=== PATIENT | male | born 1965 | race Caucasian/White ===

== ENCOUNTER → 2017-03-11 | Outpatient (CLI) | payer BC ==
--- NOTE | 2017-03-12 07:44 | US ---
EXAMINATION TYPE: US thyroid st tissue head/neck DATE OF EXAM: 03/11/2017 3:57 PM COMPARISON: Previous study dated 07/10/2016. CLINICAL HISTORY: E04.1 THYROID NODULE. GLAND SIZE: Right Lobe: 5.5 x 2.4 x 2.9 cm Overall Parenchyma: heterogenous Left Lobe: 4.7 x 1.7 x 2.0 cm Overall Parenchyma: heterogeneous Isthmus Thickness: 0.5 cm NODULES RIGHT: # of nodules measured on right: 3 largest of multiple 1. 1.7 X 1.1 x 1.0 cm hypoechoic cystic nodule at the upper pole with well-defined margins. This n odule is wider than tall and shows no intranodular vascularity. Prior size: 1.6 x 1.1 x 1.0 cm 2. 0.9 X 1.1 x 1.1 cm hypoechoic solid nodule at the upper pole with margins. This nodule is wide a s is tall and shows no intranodular vascularity. Prior size: 1.2 x 1.1 x 1.1 cm 3. 0.4 x 0.4 x 0.4cm hypoechoic mixed nodule at the lower pole with well-defined margins. This nodul e is wide as is tall and shows no intranodular vascularity. Prior size: not previously seen 4. Multiple smaller mid pole nodules are again seen, but not measured in 2 views as are < 0.4cm. LEFT: # of nodules measured on left: 2 1. 0.7 X 0.5 x 0.3 cm hypoechoic mixed nodule at the mid pole with well-defined margins. This nodu le is wider than tall and shows no intranodular vascularity. Prior size: 0.9 x 0.6 x 0.4 cm 2. 0.3 X 0.3 x 0.2 cm hypoechoic solid nodule at the upper pole with well-defined margins. This nod ule is wider than tall and shows no intranodular vascularity. Prior size: not previously seen 3. 0.4 X 0.4 x 0.3 cm hypoechoic solid nodule at the lower pole with well-defined margins. This nod ule is wider than tall and shows no intranodular vascularity. Prior size: x x cm 4. Very small cyst noted last US is still present mid lower pole ~ 0.2cm. ISTHMUS: # of nodules measured in the isthmus: 0 Bilateral neck scanned, no evidence of lymphadenopathy. IMPRESSION: MULTINODULAR GOITER. SOME OF THESE LESIONS ARE SLOWLY ENLARGING.
== END | disposition home or self-care (01) ==
LOC: RADUSWWP 15:27
PROVIDERS: ATTEND Otolaryngology
DX: E04.2 Nontoxic multinodular goiter (principal)
CPT/HCPCS: 76536

== ENCOUNTER → 2017-04-10 | Outpatient (CLI) | payer BC ==
[2017-04-10 08:23] LABS: Aty Lym Flag Slight; CH 27.6; CHCM 32.5; HCT 45.6 % (39.0-53.0); HDW 2.56; HGB 14.8 gm/dL (13.0-17.5); MCH 27.7 pg (25.0-35.0); MCHC 32.5 g/dL (31.0-37.0); MCV 85.2 fL (80.0-100.0); Mean Platelet Volume 7.2; RBC 5.35 m/uL (4.30-5.90); RDW 13.7 % (11.5-15.5); WBC 7.8 k/uL (3.8-10.6); WBC (Perox) 7.96
[2017-04-10 08:31] LABS: ALT 50 U/L (21-72); AST 25 U/L (17-59); Alkaline Phosphatase 53 U/L (38-126); Anion Gap 7 mmol/L; Blood Urea Nitrogen 13 mg/dL (9-20); Calcium 9.9 mg/dL (8.4-10.2); Carbon Dioxide 31 mmol/L (22-30); Chloride 105 mmol/L (98-107); Cholesterol 161 mg/dL (<200); Glucose 93 mg/dL (74-99); HDL Cholesterol 45 mg/dL (40-60); Non-African American GFR(MDRD) >60 (>60 ml/min/1.73 sqM); Potassium 4.9 mmol/L (3.5-5.1); Sodium 143 mmol/L (137-145); Total Bilirubin 0.9 mg/dL (0.2-1.3); Total Protein 6.7 g/dL (6.3-8.2); Triglycerides 132 mg/dL (<150)
[2017-04-10 09:00] LABS: Prostate Specific Antigen 0.42 ng/mL (0.00-4.00)
[2017-04-10 11:09] LABS: Add Differential Manual Differential
[2017-04-10 11:11] LABS: Nucleated Red Blood Cells 0 /100 WBC (0-0); RBC Morphology Normal; Total Cells Counted 100
== END | disposition home or self-care (01) ==
LOC: LABWHC1 07:35
PROVIDERS: ATTEND Family Medicine
DX: Z00.01 Encounter for general adult medical examination with abnormal findings (principal); Z12.5 Encounter for screening for malignant neoplasm of prostate
CPT/HCPCS: 36415; 80053; 80061; 84153; 84443; 85025

== ENCOUNTER → 2017-12-02 | Outpatient (CLI) | payer BC ==
--- NOTE | 2017-12-03 08:04 | US ---
EXAMINATION TYPE: US thyroid st tissue head/neck DATE OF EXAM: 12/02/2017 COMPARISON: Prior thyroid ultrasound March 11, 2017 CLINICAL HISTORY: E04.1 Thyroid Nodule. GLAND SIZE: Right Lobe: 5.0 x 2.4 x 2.5 cm Overall Parenchyma: homogenous Left Lobe: 4.6 x 2.2 x 2.1 cm Overall Parenchyma: homogeneous Isthmus Thickness: 0.5 cm NODULES RIGHT: # of nodules measured on right: 4 largest of multiple 1. 1.9 X 1.3 x 1.3 cm hypoechoic cystic nodule at the upper pole with well-defined margins. This n odule is wider as tall and shows no intranodular vascularity. Prior size: 1.7 x 1.1 x 1.0 cm 2. 1.1 X 0.9 x 1.1 cm hypoechoic solid nodule at the mid pole with well-defined margins. This nodul e is taller than wide and shows intranodular vascularity. Prior size: 0.9 x 1.1 x 1.1 cm 3. 0.5 X 0.4 x 0.3 cm hypoechoic mixed nodule at the lower pole with well-defined margins. This nod ule is wider than tall and shows no intranodular vascularity. Prior size: 0.4 x 0.4 x 0.4 cm 4. 0.4 X 0.4 x 0.3 cm hypoechoic mixed nodule at the lower medial pole with well-defined margins. T his nodule is wider than tall and shows no intranodular vascularity. Prior size: no prior LEFT: # of nodules measured on left: 3 largest of multiple 1. 1.0 X 0.7 x 0.4 cm hypoechoic mixed nodule at the mid pole with well-defined margins. This nodu le is wider than tall and shows no intranodular vascularity. Prior size: 0.7 x 0.5 x 0.3 cm 2. 0.4 X 0.5 x 0.3 cm hypoechoic mixed nodule at the upper pole with well-defined margins. This nod ule is wider than tall and shows no intranodular vascularity. Prior size: 0.3 x 0.3 x 0.2 cm 3. 0.3 X 0.3 x 0.2 cm hypoechoic mixed nodule at the lower pole with well-defined margins. This nodu le is wider than tall and shows no intranodular vascularity. Prior size: 0.4 x 0.4 x 0.3 cm ISTHMUS: # of nodules measured in the isthmus: 0 Bilateral neck scanned, no evidence of lymphadenopathy. IMPRESSION: Findings consistent with multinodular goiter redemonstrated as there are several small nodules seen i n normal size thyroid. No significant change from most recent prior.
== END | disposition home or self-care (01) ==
LOC: RADUSWWP 16:19
PROVIDERS: ATTEND Otolaryngology
DX: E04.2 Nontoxic multinodular goiter (principal)
CPT/HCPCS: 76536

== ENCOUNTER → 2018-03-12 | Outpatient (CLI) | payer BC ==
[2018-03-12 09:33] LABS: Basophils # (A) 0.1 k/uL (0-0.2); Basophils % (A) 1 %; Eosinophils # (A) 0.3 k/uL (0-0.7); Eosinophils % (A) 4 %; HCT 46.9 % (39.0-53.0); HGB 15.2 gm/dL (13.0-17.5); Lymphocytes # (A) 2.4 k/uL (1.0-4.8); Lymphocytes % (A) 32 %; MCH 26.4 pg (25.0-35.0); MCHC 32.5 g/dL (31.0-37.0); MCV 81.3 fL (80.0-100.0); Mean Platelet Volume 7.3; Monocytes # (A) 0.5 k/uL (0-1.0); Monocytes % (A) 7 %; Neutrophils # (A) 3.9 k/uL (1.3-7.7); Neutrophils % (A) 52 %; Platelet Count 323 k/uL (150-450); RBC 5.76 m/uL (4.30-5.90); RDW 13.7 % (11.5-15.5); WBC 7.5 k/uL (3.8-10.6)
[2018-03-12 10:36] LABS: ALT 39 U/L (21-72); AST 23 U/L (17-59); Albumin 4.2 g/dL (3.5-5.0); Alkaline Phosphatase 56 U/L (38-126); Anion Gap 12 mmol/L; Blood Urea Nitrogen 18 mg/dL (9-20); Carbon Dioxide 28 mmol/L (22-30); Chloride 106 mmol/L (98-107); Cholesterol 167 mg/dL (<200); Glucose 93 mg/dL (74-99); HDL Cholesterol 41 mg/dL (40-60); LDL Cholesterol,Calculated 102 mg/dL (0-99); Potassium 4.8 mmol/L (3.5-5.1); Sodium 146 mmol/L (137-145); Total Bilirubin 0.5 mg/dL (0.2-1.3); Total Protein 6.7 g/dL (6.3-8.2); Triglycerides 121 mg/dL (<150)
[2018-03-12 10:49] LABS: T4, Free (Free Thyroxine) 0.96 ng/dL (0.78-2.19)
[2018-03-12 17:24] LABS: Thyroid Peroxidase Antibodies 35.3 U/mL (0.0-60.0)
[2018-03-12 18:56] LABS: Thyroglobulin 16.7 ng/mL (1.60-59.90)
== END | disposition home or self-care (01) ==
LOC: LABWHC1 08:36
PROVIDERS: ATTEND Nurse Practitioner Family
DX: Z00.00 Encounter for general adult medical examination without abnormal findings (principal); I10 Essential (primary) hypertension; E04.1 Nontoxic single thyroid nodule; R53.83 Other fatigue; Z12.5 Encounter for screening for malignant neoplasm of prostate
CPT/HCPCS: 36415; 80053; 80061; 84153; 84432; 84439; 84443; 85025; 86376

== ENCOUNTER → 2018-03-22 | Outpatient (CLI) | payer BC ==
--- NOTE | 2018-03-22 20:22 | US ---
EXAMINATION TYPE: US thyroid st tissue head/neck DATE OF EXAM: 03/22/2018 COMPARISON: 12/02/2012 CLINICAL HISTORY: 52-year-old male E04.1 THYROID NODULE. GLAND SIZE: Right Lobe: 6.3 x 2.3 x 2.0 cm Overall Parenchyma: heterogenous Left Lobe: 5.4 x 2.2 x 2.1 cm Overall Parenchyma: heterogeneous Isthmus Thickness: 0.4 cm NODULES RIGHT: # of nodules measured on right: 4 1. 1.7 X 1.1 x 1.2 cm mildly complex cystic nodule at the upper pole with well-defined margins; . This nodule is wider than tall and shows no intranodular vascularity. Prior size: 1.9 x 1.3 x 1.3 cm 2. 1.1 X 1.1 x 1.2 cm hypoechoic solid nodule at the upper pole with well-defined margins; there are microcalcifications. This nodule is wider than tall and shows intranodular vascularity. Prior size: 1.1 x 0.9 x 1.1 cm 3. 0.5 X 0.5 x 0.4 cm hypoechoic solid nodule at the lower pole with well-defined margins; . This n odule is wider than tall and shows no intranodular vascularity. Prior size: 0.5 x 0.4 x 0.3 cm 4. 0.5 X 0.4 x 0.5 cm hypoechoic solid nodule at the lower pole with well-defined margins; . This n odule is wider than tall and shows no intranodular vascularity. Prior size: 0.4 x 0.4 x 0.3 cm LEFT: # of nodules measured on left: 2 1. 0.9 X 0.4 x 0.7 cm hypoechoic mixed nodule at the lower pole with well-defined margins; . This nodule is wider than tall and shows no intranodular vascularity. Prior size: 1.0 x 0.7 x 0.4 cm 2. 0.4 X 0.3 x 0.4 cm hypoechoic solid nodule at the upper pole with margins; . This nodule is wide r than tall and shows no intranodular vascularity. Prior size: 0.4 x 0.5 x 0.3 cm ISTHMUS: # of nodules measured in the isthmus: 0 Bilateral neck scanned, no evidence of lymphadenopathy. 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 Only two nodules doc umented on left as compared to 3 on prior exam. IMPRESSION: 1. Findings likely represent multinodular goiter. 2. Numerous bilateral nodules are present. The largest on the right measures 1.7 cm versus 1.9 cm, pr eviously and is a mildly complex cystic nodule. The second largest nodule on the right is solid at 1. 2 cm and is relatively unchanged. 3. Largest nodule on the left measures 9 mm and is relatively unchanged.
== END | disposition home or self-care (01) ==
LOC: RADUSWWP 16:51
PROVIDERS: ATTEND Otolaryngology
DX: E04.2 Nontoxic multinodular goiter (principal)
CPT/HCPCS: 76536

== ENCOUNTER → 2018-10-15 | Outpatient (CLI) | payer BC ==
[2018-10-15 17:35] LABS: T4, Free (Free Thyroxine) 1.3 ng/dL (0.80-1.80)
== END | disposition home or self-care (01) ==
LOC: LABWHC1 08:01
PROVIDERS: ATTEND Nurse Practitioner Family
DX: E04.9 Nontoxic goiter, unspecified (principal)
CPT/HCPCS: 36415; 84439; 84443

== ENCOUNTER → 2019-05-23 | Outpatient (CLI) | payer BC ==
--- NOTE | 2019-05-23 13:44 | US ---
EXAMINATION TYPE: US thyroid st tissue head/neck DATE OF EXAM: 05/23/2019 COMPARISON: US 03/22/2018 CLINICAL HISTORY: E04.1 SINGLE THYROID NODULE. GLAND SIZE: Right Lobe: 5.7 x 2.1 x 2.1 cm Overall Parenchyma: heterogenous Left Lobe: 4.9 x 1.9 x 1.8 cm Overall Parenchyma: heterogeneous Isthmus Thickness: 0.6 cm NODULES RIGHT: # of nodules measured on right: 2- Multiple subcentimeter nodules visualized 1. 1.2 X 0.9 x 1.1 cm isoechoic solid nodule at the mid pole with well-defined margins; . This nod ule is wider than tall and shows intranodular vascularity. Prior size: 1.1 x 1.1 x 1.2 cm 2. 1.5 X 0.9 x 1.1 cm hypoechoic mixed nodule at the mid pole with well-defined margins; . This nod ule is wider than tall and shows intranodular vascularity. Prior size: 1.7 x 1.1 x 1.2 cm LEFT: # of nodules measured on left: 1 1. 1.3 X 0.5 x 0.7 cm hypoechoic solid nodule at the upper pole with well-defined margins; . This nodule is wider than tall and shows intranodular vascularity. Prior size: 0.9 x 0.4 x 0.7 cm ISTHMUS: # of nodules measured in the isthmus: 0 Bilateral neck scanned, no evidence of lymphadenopathy. IMPRESSION: Exam is essentially stable, slight interval growth in left tyroid nodule is likely at least in part d ue to differences in measurement technique.
== END | disposition home or self-care (01) ==
LOC: RADUSWWP 08:56
PROVIDERS: ATTEND Family Medicine
DX: E04.1 Nontoxic single thyroid nodule (principal)
CPT/HCPCS: 76536

== ENCOUNTER → 2019-12-19 | Outpatient (CLI) | payer BC ==
[2019-12-19 08:33] LABS: HCT 46.4 % (39.0-53.0); HGB 14.7 gm/dL (13.0-17.5); MCHC 31.8 g/dL (31.0-37.0); MCV 85.1 fL (80.0-100.0); Mean Platelet Volume 7.7; Platelet Count 410 k/uL (150-450); RBC 5.45 m/uL (4.30-5.90); RDW 13.4 % (11.5-15.5); WBC 9.1 k/uL (3.8-10.6)
[2019-12-19 09:40] LABS: Eosinophils # (M) 0.64 k/uL (0-0.7); Lymphocytes # (M) 2.64 k/uL (1.0-4.8); Monocytes # (M) 0.73 k/uL (0-1.0); Neutrophils % (M) 56 %; Nucleated Red Blood Cells 0 /100 WBC (0-0); Total Cells Counted 100
[2019-12-19 11:34] LABS: African American GFR (CKD) 112.6 (60.0-200.0); Albumin 4.6 g/dL (3.80-4.90); Albumin/Globulin Ratio 2.3 (1.60-3.17); Anion Gap 8.4 mmol/L (4.00-12.00); BUN/Creat Ratio 17.78 Ratio (12.00-20.00); Calcium 9.8 mg/dL (8.7-10.3); Carbon Dioxide 28.6 mmol/L (21.6-31.8); Non-African American GFR(CKD) 97.2 (60.0-200.0); Potassium 5.2 mmol/L (3.5-5.5); Total Bilirubin 0.6 mg/dL (0.3-1.2); Total Protein 6.6 g/dL (6.2-8.2)
== END | disposition home or self-care (01) ==
LOC: LABWHC1 07:14
PROVIDERS: ATTEND Family Medicine
DX: K80.20 Calculus of gallbladder without cholecystitis without obstruction (principal)
CPT/HCPCS: 36415; 80053; 85025

== ENCOUNTER → 2020-05-24 | Outpatient (CLI) | payer BC ==
[2020-05-24 08:11] LABS: Basophils # (A) 0.1 k/uL (0-0.2); Basophils % (A) 1 %; Eosinophils # (A) 0.4 k/uL (0-0.7); Eosinophils % (A) 5 %; HCT 48.4 % (39.0-53.0); HGB 15.7 gm/dL (13.0-17.5); Lymphocytes # (A) 2.2 k/uL (1.0-4.8); Lymphocytes % (A) 27 %; MCH 27.6 pg (25.0-35.0); MCHC 32.5 g/dL (31.0-37.0); Mean Platelet Volume 7.3; Monocytes # (A) 0.6 k/uL (0-1.0); Monocytes % (A) 7 %; Neutrophils # (A) 4.4 k/uL (1.3-7.7); Neutrophils % (A) 55 %; Platelet Count 345 k/uL (150-450); RBC 5.69 m/uL (4.30-5.90); RDW 13.3 % (11.5-15.5)
[2020-05-24 11:10] LABS: African American GFR (CKD) 118.2 (60.0-200.0); Albumin 4.3 g/dL (3.80-4.90); Albumin/Globulin Ratio 2.15 (1.60-3.17); Anion Gap 4.6 mmol/L (4.00-12.00); BUN/Creat Ratio 16.25 Ratio (12.00-20.00); Calcium 9.7 mg/dL (8.7-10.3); Carbon Dioxide 28.4 mmol/L (21.6-31.8); Chol/HDL Ratio 3.81; Potassium 4.5 mmol/L (3.5-5.5); Total Bilirubin 0.8 mg/dL (0.3-1.2); Total Protein 6.3 g/dL (6.2-8.2)
[2020-05-24 11:17] LABS: T4, Free (Free Thyroxine) 1.3 ng/dL (0.80-1.80)
[2020-05-24 16:15] LABS: Hemoglobin A1C 5.4 % (4.0-6.0)
== END | disposition home or self-care (01) ==
LOC: LABWHC1 07:08
PROVIDERS: ATTEND Nurse Practitioner Adult Health
DX: Z00.00 Encounter for general adult medical examination without abnormal findings (principal); Z11.59 Encounter for screening for other viral diseases
CPT/HCPCS: 36415; 80053; 80061; 83036; 84439; 84443; 85025; 86803

== ENCOUNTER 2023-05-14 09:34 | Day surgery (SDC) | payer BC ==
[2023-05-14] MEDS ORDERED: LACTATED RINGERS 1,000 ML IV ONE ×2 (10:04)
[2023-05-14] MEDS ORDERED: LACTATED RINGERS 1,000 ML IV SCH (10:04)
[2023-05-14 10:08] VITALS: RESP 16; TEMP 97.9
[2023-05-14] MEDS ORDERED: PROPOFOL 10 MG/ML 20 ML VIAL IV ONE (10:25)
--- NOTE | 2023-05-14 10:54 | P.PCN ---
Date of Procedure: 05/14/23 Procedure(s) Performed: BRIEF HISTORY: Patient is a 57-year-old pleasant white male male scheduled for an elective colonoscopy as a part of evaluation of intermittent rectal bleeding. PROCEDURE PERFORMED: Colonoscopy. PREOPERATIVE DIAGNOSIS: Intermittent rectal bleeding. IV sedation per Anesthesia. PROCEDURE: After informed consent was obtained, the patient, was brought into the endoscopy unit. IV sedation was administered by Anesthesia under continuous monitoring. Digital rectal examination was normal. Initially the Olympus CF-160 flexible video colonoscope was then inserted in the rectum, gradually advanced into the cecum without any difficulty. Careful examination was performed as the scope was gradually being withdrawn. Ileocecal valve and the appendiceal orifice were visualized and appeared normal. Prep was fair. Mucosa of the cecum, ascending colon, transverse colon, descending colon, sigmoid colon, and rectum appeared normal. Retroflexion was performed in the rectum and small internal hemorrhoids were seen. The patient tolerated the procedure well. IMPRESSION: Normal-appearing colon from rectum to cecum with no evidence of colorectal neoplasia . Small internal hemorrhoids RECOMMENDATIONS: Findings of this examination were discussed with the patient as well as his family. He was advised to be a high-fiber diet and was noted. Recommend repeat screening colonoscopy in 10 years.
[2023-05-14 11:17] VITALS: BP 138/88; PULSE 57
== END 2023-05-14 11:52 | disposition home or self-care (01) ==
LOC: ORWHC2ENDO 09:34
PROVIDERS: ATTEND Internal Medicine Gastroenterology
DX: K64.8 Other hemorrhoids (principal); I10 Essential (primary) hypertension; F17.200 Nicotine dependence, unspecified, uncomplicated; E04.1 Nontoxic single thyroid nodule; Z79.899 Other long term (current) drug therapy
CPT/HCPCS: 45378; J2704

== ENCOUNTER → 2024-02-29 | Outpatient (CLI) | payer BC ==
--- NOTE | 2024-03-02 09:34 | US ---
EXAMINATION TYPE: US thyroid st tissue head/neck DATE OF EXAM: 02/29/2024 COMPARISON: 05/23/2019 CLINICAL INDICATION: Male, 58 years old with history of E04.1 NONTOXIC SINGLE THYROID NODULE; Nodule GLAND SIZE: Right Lobe: 6.1 x 2.1 x 2.5 cm Overall Parenchyma: heterogeneous Left Lobe: 5.2 x 2.2 x 2.1 cm Overall Parenchyma: heterogeneous Isthmus Thickness: 0.49 cm NODULES RIGHT: # of nodules measured on right: 2 1. 1.4 X 1.3 x 1.2 cm, mid mid, solid or almost completely solid, hypoechoic nodule, which is as wi de as it is tall, with smooth margins, with echogenic foci. Prior size: 1.2 x 0.9 x 1.1 cm 2. 0.6 X 0.6 x 0.4 cm, mid mid, solid or almost completely solid, hypoechoic nodule, which is wider than tall, with smooth margins, without echogenic foci. Prior size: Does not correlate with certainty LEFT: # of nodules measured on left: 2 1. 0.7 X 0.5 x 0.5 cm, upper mid, mixed cystic and solid, hypoechoic nodule, which is as wide as it is tall, with smooth margins, without echogenic foci. Prior size: Does not correlate 2. 1.1 X 0.8 x 0.5 cm, mid medial, solid or almost completely solid, hypoechoic nodule, which is w ider than tall, with smooth margins, with echogenic foci. Prior size: 1.3 x 0.5 x 0.7 cm ISTHMUS: # of nodules measured in the isthmus: 0 Bilateral neck scanned, prominent lymph node seen right neck, cortex measures 3.0 mm. The short axis of the lymph node is 5 mm and has a benign appearance. IMPRESSION: Mildly increasing multinodular goiter. The largest nodule is in the right mid gland and has increased slightly in size from 1.2 x 0.9 x 1.1 cm to 1.4 x 1.3 x 1.2 cm. Yearly follow-up is recommended. 2017 ACR TI-RADS LEVEL: 4 *Highest TI-RADS level nodule reported
== END | disposition home or self-care (01) ==
LOC: RADUSWWP 14:44
PROVIDERS: ATTEND Family Medicine
DX: E04.2 Nontoxic multinodular goiter (principal)
CPT/HCPCS: 76536

== ENCOUNTER → 2024-03-29 | Outpatient (CLI) | payer BC ==
[2024-03-29 10:35] LABS: Basophils # (A) 0.11 X 10*3/uL (0.00-0.10); Basophils % (A) 1.5 %; Eosinophils # (A) 0.52 X 10*3/uL (0.04-0.35); Eosinophils % (A) 7.1 %; HGB 14.8 g/dL (13.0-17.0); Lymphocytes # (A) 2.26 X 10*3/uL (0.90-5.00); Lymphocytes % (A) 30.7 %; MCHC 31.5 g/dL (32.0-37.0); MCV 85.8 FL (80.0-97.0); Mean Platelet Volume 9.9 FL (9.5-12.2); Monocytes # (A) 0.87 X 10*3/uL (0.20-1.00); Monocytes % (A) 11.8 %; NRBC Per 100 WBC 0 X 10*3/uL (0.00-0.01); Neutrophils % (A) 48.8 %; Platelet Count 329 X 10*3/uL (140-440); RBC 5.48 X 10*6/uL (4.40-5.60); RDW 13.6 % (11.5-14.5); WBC 7.37 X 10*3/uL (4.50-10.00)
[2024-03-29 11:02] LABS: ALT 27 U/L (10-49); AST 17 U/L (14-35); Albumin 4.2 g/dL (3.8-4.9); Alkaline Phosphatase 60 U/L (41-126); Calcium 9.5 mg/dL (8.7-10.3); Carbon Dioxide 26.4 mmol/L (21.6-31.8); Chloride 106 mmol/L (96-109); Chol/HDL Ratio 3.96 Ratio; Glucose 90 mg/dL (70-110); LDL Cholesterol,Calculated 102.5 mg/dL (0.0-131.0); Potassium 4.7 mmol/L (3.5-5.5); Prostate Specific Antigen 0.71 ng/mL (0.000-3.500); Sodium 142 mmol/L (135-145); T4, Free (Free Thyroxine) 1.32 ng/dL (0.80-1.80); Total Bilirubin 0.5 mg/dL (0.3-1.2); Total Protein 6.2 g/dL (6.2-8.2)
== END | disposition home or self-care (01) ==
LOC: LABWHC1 06:57
PROVIDERS: ATTEND Family Medicine
DX: Z00.00 Encounter for general adult medical examination without abnormal findings (principal); Z13.1 Encounter for screening for diabetes mellitus; Z12.5 Encounter for screening for malignant neoplasm of prostate; I10 Essential (primary) hypertension; E04.1 Nontoxic single thyroid nodule
CPT/HCPCS: 36415; 80053; 80061; 83036; 84153; 84439; 84443; 85025

== ENCOUNTER → 2025-05-02 | Outpatient (CLI) | payer BC ==
[2025-05-02 10:26] LABS: Basophils # (A) 0.09 X 10*3/uL (0.00-0.10); Basophils % (A) 1.3 %; Eosinophils # (A) 0.35 X 10*3/uL (0.04-0.35); Eosinophils % (A) 5.1 %; HGB 15.3 g/dL (13.0-17.0); Lymphocytes # (A) 2.08 X 10*3/uL (0.90-5.00); Lymphocytes % (A) 30.1 %; MCH 27.4 pg (27.0-32.0); MCHC 32.6 g/dL (32.0-37.0); MCV 84.2 FL (80.0-97.0); Mean Platelet Volume 9.7 FL (9.5-12.2); Monocytes # (A) 0.88 X 10*3/uL (0.20-1.00); Monocytes % (A) 12.7 %; NRBC Per 100 WBC 0 X 10*3/uL (0.00-0.01); Neutrophils # (A) 3.49 X 10*3/uL (1.80-7.70); Neutrophils % (A) 50.4 %; Platelet Count 322 X 10*3/uL (140-440); RBC 5.58 X 10*6/uL (4.40-5.60); RDW 13.8 % (11.5-14.5); WBC 6.92 X 10*3/uL (4.50-10.00)
[2025-05-02 10:40] LABS: ALT 34 U/L (10-49); AST 23 U/L (14-35); Albumin 4.2 g/dL (3.8-4.9); Albumin/Globulin Ratio 1.91 Ratio (1.60-3.17); Alkaline Phosphatase 61 U/L (41-126); BUN/Creat Ratio 17.71 Ratio (12.00-20.00); Blood Urea Nitrogen 12.4 mg/dL (9.0-27.0); Calcium 9.4 mg/dL (8.7-10.3); Carbon Dioxide 26.5 mmol/L (21.6-31.8); Chloride 105 mmol/L (96-109); Chol/HDL Ratio 3.96 Ratio; Globulin 2.2 g/dL (1.6-3.3); Glucose 99 mg/dL (70-110); LDL Cholesterol,Calculated 98.9 mg/dL (0.0-131.0); Potassium 4.5 mmol/L (3.5-5.5); Sodium 141 mmol/L (135-145); Total Bilirubin 0.8 mg/dL (0.3-1.2); Total Protein 6.4 g/dL (6.2-8.2)
[2025-05-02 10:41] LABS: Prostate Specific Antigen 0.97 ng/mL (0.000-3.500); T4, Free (Free Thyroxine) 1.19 ng/dL (0.80-1.80)
== END | disposition home or self-care (01) ==
LOC: LABWHC1 07:23
PROVIDERS: ATTEND Nurse Practitioner Adult Health
DX: Z00.00 Encounter for general adult medical examination without abnormal findings (principal); Z13.1 Encounter for screening for diabetes mellitus; Z12.5 Encounter for screening for malignant neoplasm of prostate
CPT/HCPCS: 36415; 80053; 80061; 83036; 84153; 84439; 84443; 85025